=== PATIENT | male | born 1960 | race Asian ===

== ENCOUNTER 2020-01-05 05:50 | Day surgery (SDC) | payer OTHER ==
[2020-01-03 13:33] LABS: COVID AG,FIA SOURCE NASOPHARYNGEAL
[~2020-01-05] VITALS: Ht 172.7 cm; Wt 67.0 kg
[~2020-01-05 05:50] MED LIST: ALBU8HFA4 IH; ASPI-728 PO; ATOR40TA28 PO; BECL8.7A5 IH; BUPR150SR PO; FAMO20 PO; LOSA25TA21 PO; METF-960 PO; MONT-35 PO; SODIUM CHLORIDE 0.9% 1,000 ML ONE
[2020-01-05] MEDS ORDERED: LIDOCAINE 2% 30 ML JELLY TP ONE (05:51)
[2020-01-05] MEDS ORDERED: LIDOCAINE 4% 50 ML SOLUTION TP ONE (05:51)
[2020-01-05] MEDS ORDERED: BENZOCAINE 20% 50 MCG/SPRAY 57 GM TP ONE (05:51)
[2020-01-05] MEDS ORDERED: ALBUTEROL SULFATE 2.5 MG/0.5 ML NEB SOLUTION NEB ONE (05:51)
[2020-01-05] MEDS ORDERED: SODIUM CHLORIDE 0.9% 1,000 ML IV ONE (06:00)
[2020-01-05] MEDS ORDERED: FLUT16H NASAL (07:20)
[2020-01-05] MEDS ORDERED: ESCI-8 PO (07:20)
[2020-01-05] MEDS ORDERED: INSU100I26 SQ (07:20)
[2020-01-05] MEDS ORDERED: BUDE10.2 IH (07:20)
[2020-01-05] MEDS ORDERED: FentaNYL CITRATE-PF 100 MCG/2 ML VIAL ONE (07:36)
[2020-01-05] MEDS ORDERED: MIDAZOLAM HCL 2 MG/2 ML VIAL ONE (07:36)
[2020-01-05] MEDS ORDERED: MethylPREDNISolone SOD SUCC 125 MG/2 ML VIAL IVP ONE (08:45)
[2020-01-05] MEDS ORDERED: MethylPREDNISolone SOD SUCC 125 MG/2 ML VIAL ONE (09:13)
[2020-01-05] MEDS ORDERED: OXYGEN THERAPY IH SCH (20:00)
== END 2020-01-05 10:20 | disposition home or self-care (01) ==
LOC: SURGERY 05:50
PROVIDERS: ATTEND Internal Medicine Critical Care Medicine
DX: J38.4 Edema of larynx (principal); B37.0 Candidal stomatitis; E78.5 Hyperlipidemia, unspecified; I10 Essential (primary) hypertension; K21.9 Gastro-esophageal reflux disease without esophagitis; E78.00 Pure hypercholesterolemia, unspecified; Z79.899 Other long term (current) drug therapy; Z98.890 Other specified postprocedural states; Z20.828 Contact with and (suspected) exposure to other viral communicable diseases
CPT/HCPCS: 31623; 31624; 71045; 87015; 87070; 87077; 87101; 87186; 87205; 87206; 87220; 87426; 88108; 88312; C9803; J2250; J2930; J3010; J7030; J7613; Z7610

== ENCOUNTER 2021-01-17 06:13 | Day surgery (SDC) | payer OTHER ==
[2021-01-15 10:21] LABS: COVID AG,FIA SOURCE NASOPHARYNGEAL
[~2021-01-17] VITALS: Ht 172.7 cm; Wt 69.5 kg
[~2021-01-17 06:13] MED LIST changes: +ASPI-1450 PO; -ASPI-728 PO; -BECL8.7A5 IH; +BUDE10.2 IH; -BUPR150SR PO; +ESCI-8 PO; +FLUT16H NASAL; +INSU100I26 SQ; +METF-1211 PO; -METF-960 PO
[2021-01-17] MEDS ORDERED: SODIUM CHLORIDE 0.9% 1,000 ML IV ONE (06:30)
[2021-01-17] MEDS ORDERED: MIDAZOLAM HCL 5 MG/ML VIAL ONE (06:50)
[2021-01-17] MEDS ORDERED: FentaNYL CITRATE PF 100 MCG/2 ML VIAL ONE (06:50)
[2021-01-17 07:33] LABS: GLUCOMETER DEV NAME(LOC) SDS.; GLUCOSE,POINT OF CARE 134 MG/DL (70-110)
[2021-01-17] MEDS ORDERED: MethylPREDNISolone SOD SUCC 125 MG/2 ML VIAL IVP ONE (09:15)
[2021-01-17] MEDS ORDERED: MethylPREDNISolone SOD SUCC 125 MG/2 ML VIAL ONE (10:05)
[2021-01-17] MEDS ORDERED: LIDOCAINE 2% 30 ML JELLY ONE (14:37)
[2021-01-17] MEDS ORDERED: BENZOCAINE 20% 50 MCG/SPRAY 57 GM ONE (14:37)
[2021-01-17] MEDS ORDERED: ALBUTEROL SULFATE 2.5 MG/0.5 ML NEB SOLUTION NEB ONE (14:37)
[2021-01-17] MEDS ORDERED: LIDOCAINE 4% 50 ML SOLUTION ONE (14:37)
[2021-01-17] MEDS ORDERED: OXYGEN THERAPY IH SCH (20:00)
[2021-01-18] MEDS ORDERED: SODIUM CHLORIDE 0.9% 1,000 ML IV ONE (06:30)
== END 2021-01-17 11:15 | disposition home or self-care (01) ==
LOC: SURGERY 06:13
PROVIDERS: ATTEND Internal Medicine Critical Care Medicine
DX: J38.4 Edema of larynx (principal); B37.0 Candidal stomatitis; F17.210 Nicotine dependence, cigarettes, uncomplicated; J43.9 Emphysema, unspecified; Z79.899 Other long term (current) drug therapy; Z98.890 Other specified postprocedural states; Z86.11 Personal history of tuberculosis
CPT/HCPCS: 31623; 31624; 71045; 82962; 87015; 87070; 87101; 87186; 87205; 87206; 87220; 87426; 88108; 88184; 88185; 88312; C9803; J2250; J2930; J3010; J7030; J7613; Z7610